=== PATIENT | male | born 1985 | race Caucasian/White ===

== ENCOUNTER 2021-07-25 23:30 | Emergency (ER) | payer OTHER ==
[~2021-07-25] VITALS: Ht 170.2 cm; Wt 93.4 kg
[2021-07-25 23:34] VITALS: BP 121/95
--- NOTE | 2021-07-25 23:57 | NUR ---
Dr. Tompkins at chair A to exam patient.
--- NOTE | 2021-07-26 00:16 | NUR ---
seen by DOMINIC no nursing interventions provided by me.
--- NOTE | 2021-07-26 00:16 | NUR ---
Patient discharged with v/s stable. Written and verbal after care instructions given and explained. Patient verbalized understanding. With police in custody. ID band removed. All questions addressed prior to discharge. Advised to follow up with PMD.
== END 2021-07-26 00:16 ==
LOC: MED 23:30
DX: F10.129 Alcohol abuse with intoxication, unspecified (principal); G89.29 Other chronic pain; M54.59 Other low back pain; Z02.89 Encounter for other administrative examinations; V49.9XXA Car occupant (driver) (passenger) injured in unspecified traffic accident, initial encounter; Y93.89 Activity, other specified; Y92.89 Other specified places as the place of occurrence of the external cause; Y99.8 Other external cause status
CPT/HCPCS: 99283